=== PATIENT | male | born 1950 | race Two or more races ===

== ENCOUNTER → 2018-09-05 | Outpatient (CLI) | payer MEDICARE, OTHER ==
--- NOTE | 2018-09-05 14:15 | RAD ---
Abdominal aortic ultrasound without comparison for abdominal aortic aneurysm screening. TECHNIQUE AND FINDINGS: Real-time grayscale and color and spectral Doppler evaluation of the aorta and iliac arteries is performed. The aorta and iliac arteries are widely patent with normal color flow. No aneurysms are identified. There is normal spectral flow within the aorta. A few sparsely scattered aortic calcifications are present. The proximal aorta measures 2.4 x 1.9 cm, the mid 2.1 x 1.7 cm, in the distal 1.8 x 1.8 cm. IMPRESSION: 1. Mild atherosclerosis with no sonographic evidence of aortoiliac aneurysm. Electronically signed by: Rafa Butler MD (09/05/2018 2:12 PM) [id number]
== END | disposition home or self-care (01) ==
LOC: US 07:47
PROVIDERS: ATTEND Family Medicine
DX: Z13.6 Encounter for screening for cardiovascular disorders (principal); I70.0 Atherosclerosis of aorta
CPT/HCPCS: 76770